=== PATIENT | female | born 2005 | race Caucasian/White ===

== ENCOUNTER 2025-03-04 22:57 | Emergency (ER) | payer MEDICAID, SELFPAY ==
--- OUTSIDE RECORDS SUMMARY | 2025-02-19 11:13 | XMS_ITS | Continuity of Care Document ---
Author Organization [facility] Address [address] [place] [address] Phone Care Team Providers Care Admittance Attendant Name Role Phone Luis Katt FERNANDEZ Unavailable Unavaila ble Allergies, Adverse Reactions, Alerts Substance Reaction Status Criticality No Known Allergies Active No Inform ation Medications Medication Instructions Dosage Effective Dates (start - stop) Status Comments Depo-Provera 150 mg/mL intramuscular syringe inject 1 milliliter by intramuscular route every 3 months 150 MG - Active Problems Condition Type Effective Dates (start - stop) Clini robert Status Comments No Known Problems Procedures Procedure Date Depo Provera 1 Ml OFFICE/OUTPATIENT VISIT, EST DIAST BP 80-89 MM HG SYST BP >=130-139MM HG MED LIST DOCD IN [facility] RVW MEDS BY RX/DR IN [facility] TOBACCO NON-USER Pt inelig neg scrn depres Depo Provera 1 Ml OFFICE/OUTPATIENT VISIT, EST Bp scrn perf rec interval DIAST BP < 80 MM HG SYST BP >=130-139MM HG MED LIST DOCD IN RD RVW MEDS BY RX/DR IN RD TOBACCO NON-USER Pt inelig neg scrn depres PREV VISIT, EST, AGE 18-39 Depo Provera 1 Ml OFFICE/OUTPATIENT VISIT, EST URINE TEST Depo Provera 1 Ml OFFICE/OUTPATIENT VISIT, EST Depo Provera 1 Ml OFFICE/OUTPATIENT VISIT, EST Depo Provera 1 Ml OFFICE/OUTPATIENT VISIT, EST OFFICE/OUTPATIENT VISIT, EST Depo Provera 1 Ml Depo Provera 1 Ml CAPILLARY BLOOD DRAW RAPID STI Chalm/Gonorr/Trich PREV VISIT, EST, AGE 18-39 GLYCOSYLATED HEMOGLOBIN TEST OFFICE/OUTPATIENT VISIT, EST Depo Provera 1 Ml Depo Provera 1 Ml OFFICE/OUTPATIENT VISIT, EST Donation Depo Provera 1 Ml OFFICE/OUTPATIENT VISIT, EST Donation Depo Provera 1 Ml OFFICE/OUTPATIENT VISIT, EST Depo Provera 1 Ml PREV VISIT, EST, AGE 18-39 THER/PROPH/DIAG INJ, SC/IM Depo Provera 1 Ml OFFICE/OUTPATIENT VISIT, EST OFFICE/OUTPATIENT VISIT, EST Depo Provera 1 Ml THER/PROPH/DIAG INJ, SC/IM Depo Provera 1 Ml OFFICE/OUTPATIENT VISIT, EST THER/PROPH/DIAG INJ, SC/IM Depo Provera 1 Ml OFFICE/OUTPATIENT VISIT, EST THER/PROPH/DIAG INJ, SC/IM OFFICE/OUTPATIENT VISIT, EST Depo Provera 1 Ml Depo Provera 1 Ml OFFICE/OUTPATIENT VISIT, EST THER/PROPH/DIAG INJ, SC/IM Depo Provera 1 Ml OFFICE/OUTPATIENT VISIT, EST THER/PROPH/DIAG INJ, SC/IM Depo Provera 1 Ml OFFICE/OUTPATIENT VISIT, EST THER/PROPH/DIAG INJ, SC/IM Imm Admin Through 18 Yrs Of Age - 021 Meningococcal Conjugate Vaccine 021 Depo Provera 1 Ml OFFICE/OUTPATIENT VISIT, EST THER/PROPH/DIAG INJ, SC/IM OFFICE/OUTPATIENT VISIT, EST PREV VISIT, EST, AGE 12-17 Depo Provera 1 Ml THER/PROPH/DIAG INJ, SC/IM Depo Provera 1 Ml OFFICE/OUTPATIENT VISIT, EST THER/PROPH/DIAG INJ, SC/IM Depo Provera 1 Ml OFFICE/OUTPATIENT VISIT, EST THER/PROPH/DIAG INJ, SC/IM Depo Provera 1 Ml THER/PROPH/DIAG INJ, SC/IM Depo Provera 1 Ml OFFICE/OUTPATIENT VISIT, EST THER/PROPH/DIAG INJ, SC/IM URINE TEST OFFICE/OUTPATIENT VISIT, EST Depo Provera 1 Ml THER/PROPH/DIAG INJ, SC/IM URINE TEST Imm Admin Through 18 Yrs Of Age 019 HPV 9 Valent PREV VISIT, EST, AGE 12-17 Imm Admin Through 18 Yrs Of Age 016 TDAP VACCINE >7 IM Imm Admin Through 18 Yrs Of Age 016 Meningococcal Conjugate Vaccine 016 Imm Admin Through 18 Yrs Of Age 016 HEP A VACC, PED/ADOL, 2 DOSE Imm Admin Through 18 Yrs Of Age 016 FLU VAC NO PRSV 4 ENA 3 YRS+ Imm Admin Through 18 Yrs Of Age 016 HPV 9 Valent ASSAY OF LEAD OFFICE/OUTPATIENT VISIT, EST HEP A VACC, PED/ADOL, 2 DOSE DTAP VACCINE, < 7 YRS, IM MMR VACCINE, SC POLIOVIRUS, IPV, SC/IM CHICKEN POX VACCINE, SC Advance Directives Directive Yes / No Effective Date File Name No Information Encounters Encounter Description Practice Location Reason(s) For Visit Diagnoses Date Provider Providers Copied on Encounter OFFICE/OUTPA TIENT VISIT, EST [facility], [address] [place] [address], [id number] , [place] tel:[phone] [facility] Contraception (chief complaint) Depo Provera injectionBody mass index [BMI]40.0-44.9, adult 5 Luis [facility]. [address] [place] [address], [id number] , [place]. tel:+ [phone] OFFICE/OUTPA TIENT VISIT, [facility], [address] [place] [address], [id number] , [place] tel: [phone] [facility] Depo (chief complaint) Depo Provera injectionBody mass index [BMI]40.0-44.9, adult 5 [facility] Katt. [address] [place] [address], [id number] , [place]. tel: [phone] PREV VISIT, EST, AGE 18-39 [facility], [address] [place] [address], [id number] , [place] tel: [phone] [facility] annual exam (chief complaint) Encounter for gynecological examination (general) (routine) without abnormal findingsBody mass index [BMI] 38.0-38.9, adultDepo Provera injection- STD High risk heterosexual behavior- STD screen 5 [facility]. [address] [place] [address], [id number] , [place]. tel: [phone] OFFICE/OUTPA TIENT VISIT, [facility], [address] [place] [address], [id number] , [place] tel: [phone] [facility] Vulvar lesion (chief complaint) Body mass index [BMI] 37.0-37.9, adultVulvar lesion 5 [facility] Katt. [address] [place] [address], [id number] , [place]. tel: [phone] OFFICE/OUTPA TIENT VISIT, EST [facility], [address] [place] [address], [id number] , [place] tel: [phone] [facility] contraception (chief complaint) Depo Provera injectionEncounte r for test, result negativeBody mass index [BMI] 37.0-37.9, adult 4 [facility]. [address] [place] [address], [id number] , [place]. tel: [phone] OFFICE/OUTPA TIENT VISIT, [facility], [address] [place] [address], [id number] , [place] tel: [phone] [facility] contraception (chief complaint) Depo Provera injectionBody mass index [BMI] 39.0-39.9, adult 4 [facility] Katt. [address], [place], [id number] , [place]. tel: [phone] OFFICE/OUTPA TIENT VISIT, EST [facility], [address], [place], [id number] , [place] tel: [phone] [facility] contraception (chief complaint) Body mass index [BMI]40.0-44.9, adultDepo Provera injection 4 [facility] Katt. [address], [place], [id number] , [place]. tel: [phone] OFFICE/OUTPA TIENT VISIT, [facility], [address] [place] [address], [id number] , [place] tel: [phone] [facility] contraception (chief complaint) Body mass index [BMI]40.0-44.9, adultEncounter for surveillance of injectable contraceptive 4 [facility] Katt. [address] [place] [address], [id number] , [place]. tel: [phone] PREV VISIT, EST, AGE 18-39 [facility], [address] [place] [address], [id number] , [place] tel: [phone] [facility] annual exam (chief complaint)cont raception (chief complaint) Encounter for gynecological examination (general) (routine) without abnormal findingsEncounter for STI screeningEncounte r for surveillance of injectable contraceptiveBody mass index [BMI]40.0-44.9, adult- STD High risk heterosexual behavior 4 [facility] Katt. [address] [place] [address], [id number] , [place]. tel: [phone] OFFICE/OUTPA TIENT VISIT, [facility], [address] [place] [address], [id number] , [place] tel:+ [phone] [facility] contraception (chief complaint) Encounter for surveillance of injectable contraceptive 3 [facility] Katt. [address], [place], [id number] , [place]. tel: [phone] OFFICE/OUTPA TIENT VISIT, [facility], [address], [place], [id number] , [place] tel: [phone] [facility] contraception (chief complaint) Encounter for surveillance of injectable contraceptive 3 [facility] Katt. [address], [place], [id number] , [place]. tel: [phone] OFFICE/OUTPA TIENT VISIT, [facility], [address], [place], [id number] , [place] tel: [phone] [facility] contraception (chief complaint) Encounter for surveillance of injectable contraceptive 3 [facility] Katt. [address], [place], [id number] , [place]. tel: [phone] OFFICE/OUTPA TIENT VISIT, [facility], [address], [place], [id number] , [place] tel: [phone] [facility] contraception (chief complaint) Encounter for surveillance of injectable contraceptive 3 [facility] Katt. [address], [place], [id number] , [place]. tel: [phone] PREV VISIT, EST, AGE 18-39 [facility], [address], [place], [id number] , [place] tel: [phone] [facility] annual exam (chief complaint) Encounter for gynecological examination (general) (routine) without abnormal findingsEncounter for surveillance of injectable contraceptive 3 [facility] Katt. [address], [place], [id number] , [place]. tel: [phone] OFFICE/OUTPA TIENT VISIT, [facility], [address], [place], [id number] , [place] tel: [phone] [facility] contraception (chief complaint) Encounter for surveillance of injectable contraceptive 2 [facility] Katt. [address], [place], [id number] , [place]. tel:+ [phone] OFFICE/OUTPA TIENT VISIT, [facility], [address], [place], [id number] , [place] tel:+ [phone] [facility] contraception (chief complaint) Body mass index [BMI] 36.0-36.9, adultEncounter for surveillance of injectable contraceptive 2 [facility] Katt. [address], [place], [id number] , [place]. tel: [phone] OFFICE/OUTPA TIENT VISIT, [facility], [address] [place] [address], [id number] , [place] tel: [phone] [facility] contraception (chief complaint) Encounter for surveillance of injectable contraceptiveBody mass index [BMI] 34.0-34.9, adult Dec- 2 [facility] Katt. [address], [place], [id number] , [place]. tel: [phone] OFFICE/OUTPA TIENT VISIT, [facility], [address], [place], [id number] , [place] tel: [phone] [facility] contraception (chief complaint) Encounter for surveillance of injectable contraceptiveBody mass index [BMI] 32.0-32.9, adult Sep- 2 [facility] Katt. [address] [place] [address], [id number] , [place]. tel:+ [phone] OFFICE/OUTPA TIENT VISIT, [facility], [address] [place] [address], [id number] , [place] tel: [phone] [facility] annual exam (chief complaint) - Well woman normal findingsEncounter for surveillance of injectable contraceptiveBody mass index [BMI] 32.0-32.9, adult 2 [facility] Katt. [address], [place], [id number] , [place]. tel:+ [phone] OFFICE/OUTPA TIENT VISIT, [facility], [address], [place], [id number] , [place] tel: [phone] [facility] contraception (chief complaint) Encounter for surveillance of injectable contraceptiveBody mass index [BMI] 31.0-31.9, adult 1 [facility] Katt. [address], [place], [id number] , [place]. tel:+ [phone] OFFICE/OUTPA TIENT VISIT, [facility], [address], [place], [id number] , [place] tel:+ [phone] [facility] contraception (chief complaint) Body mass index [BMI] 33.0-33.9, adultEncounter for surveillance of injectable contraceptive 1 [facility] Katt. [address], [place], [id number] , [place]. tel:+ [phone] OFFICE/OUTPA TIENT VISIT, [facility], [address], [place], [id number] , [place] tel:+ [phone] [facility] contraception (chief complaint) Encounter for surveillance of injectable contraceptiveBody mass index [BMI] 32.0-32.9, adult 1 [facility] Katt. [address], [place], [id number] , [place]. tel:+ [phone] [facility], [address], [place], [id number] , [place] tel:+ [phone] [facility] No Information 1 Natalie Loera. [address], [place], [id number] , [place]. tel:+ [phone] OFFICE/OUTPA TIENT VISIT, [facility], [address], [place], [id number] , [place] tel: [phone] [facility] contraception (chief complaint) Encounter for surveillance of injectable contraceptiveBody mass index [BMI] 32.0-32.9, adult Sep- 0- 1 Luis [facility]. [address], [place], [id number] , [place]. tel: [phone] OFFICE/OUTPA TIENT VISIT, [facility], [address], [place], [id number] , [place] tel: [phone] [facility] Irregular menses (chief complaint) Body mass index [BMI] 32.0-32.9, adultIrregular periods 1 [facility] Katt. [address] [place] [address], [id number] , [place]. tel: [phone] PREV VISIT, [facility], AGE 12-17 [facility], [address] [place] [address], [id number] , [place] tel: [phone] [facility] annual exam (chief complaint) Encounter for surveillance of injectable contraceptive- Well woman normal findingsBody mass index [BMI] 31.0-31.9, adult Jun-08 26- 0 [facility] Katt. [address] [place] [address], [id number] , [place]. tel: [phone] OFFICE/OUTPA TIENT VISIT, [facility], [address], [place], [id number] , [place] tel: [phone] [facility] contraception (chief complaint) Encounter for surveillance of injectable contraceptiveBody mass index [BMI] 32.0-32.9, adult Apr-07 28- 0 [facility] Katt. [address], [place], [id number] , [place]. tel: [phone] OFFICE/OUTPA TIENT VISIT, [facility], [address] [place] [address], [id number] , [place] tel: [phone] [facility] contraception (chief complaint) Body mass index (BMI) 32.0-32.9, adultEncounter for surveillance of injectable contraceptive 0 [facility] Katt. [address], [place], [id number] , [place]. tel:+ [phone] [facility], [address] [place] [address], [id number] , [place] tel: [phone] [facility] BMI pediatric, greater than or equal to 95% for ageInitiation of Depo Provera 0 [facility] Katt. [address], [place], [id number] , [place]. tel: [phone] OFFICE/OUTPA TIENT VISIT, EST [facility], [address] [place] [address], [id number] , [place] tel: [phone] [facility] contraception (chief complaint) Encounter for surveillance of injectable contraceptiveBody mass index (BMI) 30.0-30.9, adult 0 [facility] Katt. [address] [place] [address], [id number] , [place]. tel: [phone] OFFICE/OUTPA TIENT VISIT, EST [facility], [address] [place] [address], [id number] , [place] tel: [phone] [facility] contraception (chief complaint) Body mass index (BMI) 30.0-30.9, adultNegative testInitiation of Depo Provera 9 [facility] Katt. [address], [place], [id number] , [place]. tel: [phone] PREV VISIT, EST, AGE 12-17 [facility], [address] [place] [address], [id number] , [place] tel:+ [phone] [facility] annual exam (chief complaint) Negative testBody mass index (BMI) 29.0-29.9, adult- Well woman normal findings- STD education 9 [facility] Katt. [address] [place] [address], [id number] , [place]. tel: [phone] [facility], [address] [place] [address], [id number] , [place] tel: [phone] [facility] No Information 3-201 6 Natalie Loera. [address], [place], [id number] , [place]. tel: [phone] [facility], [address] [place] [address], [id number] , [place] tel: [phone] [facility] No Information 9-201 0 Natalie Loera. [address] [place] [address], [id number] , [place]. tel: [phone] OFFICE/OUTPA TIENT VISIT, EST [facility], [address] [place] [address], [id number] , [place] tel: [phone] [facility] No Information 2-200 9 Natalie Loera. [address] [place] [address], [id number] , [place]. tel: [phone] Family History Family Member Type Diagnosis Age At Onset Father Problem (finding) Alive and well Mother Problem Migraine headaches Mother Problem (finding) Alive and well Brother Problem attention defici t hyperactivity disorder Sister Problem (finding) depression Mother Problem Depression Brother Problem Eczema Mother Problem (finding) attention defi cit hyperactivity disorder Father Problem Diabetes mellitus Maternal grandmother Problem Diabetes mellitus Brother Problem Asthma Sister Problem (finding) Alive and well Immunizations Vaccine Date Status Comments MCV4 administered Source: New Imm unization Record HPV (9-valent) administered Source: New I mmunization Record Influenza virus vaccine, injectable, quadrivalent, split virus, preservative free, 3 years or older Fluarix, Flulaval or Fluzone Quad [id number] administered Source: New Immuniza tion Record HPV (9-valent) administered Source: New I mmunization Record Tdap administered Source: New Imm unization Record MCV4 administered Source: New Imm unization Record Hep A (ped/adol, 2 dose) administered Niecy rce: New Immunization Record Payers Payer name Insurance type Covered republican ID Mariely jama(s) Medicaid Primary - [facility] [id number] [facility] [id number] Medicaid Wrap - [facility] [id number] [facility] [id number] Medicaid Wrap - [facility] [id number] Social History Type Description Quantity Date Captured Comments Alcohol Use Details No Caffeine Use Details energy drinks and coffee 16 oz per day Tobacco Use Status Current non-smoker Smoking Status Never smoker Non-Smoking Tobacco Use Details : No Details Available : No Details Available Sex Female Sexual Orientation Bisexual Gender Identity Female Vital Signs Date / Time: Height Weight BMI Pulse Rate Blood Pressure Temperature Respiratory Rate Body Surface Area Head Circumference Head Circ. Percentile Wt./Frantz. Percentile BMI percentile Pulse Ox Inhaled Ox 3:24 PM 72.00 in 138.618 kg (305.60 lbs) 41.4 5 kg/m eter (2) 94 /min 132/82 mm[Hg] Chief Complaint And Reason For Visit From encounter dated '02/19/2025 15:13'. Contraception (chief complaint) Reason For Referral Reason For Referral No Information Plan Of Treatment Date Type Action Status Goal RLP. Due on due Goal Hepatitis C screening. Due o n due Goal Influenza vaccine. Due on due Goal Depression screening. Due on due Goal Tdap Vaccine. Due on 2025 due Goal Tdap due Goal PRAPARE ASSESSMENT. Due on due Goal PAP. Due on due Goal Unhealthy drug use screening . Due on due Goal Dietary manageme nt education, guidance, and counseling completed Goal Tdap due Goal PRAPARE ASSESSMENT. Due on M due Goal Influenza vaccine. Due on Tavo due Goal Hepatitis C screening. Due o n due Goal Unhealthy drug use screening . Due on due Goal Tdap Vaccine. Due on 2025 due Goal RLP. Due on due Goal Depression screening. Due on due Goal Dietary manageme nt education, guidance, and counseling completed Goal Depression screening. Due on due Goal Unhealthy drug use screening . Due on due Goal Hepatitis C screening. Due o n due Goal PRAPARE ASSESSMENT. Due on M due Goal RLP. Due on due Goal Tdap due Goal Influenza vaccine. Due on [place] due Goal Tdap Vaccine. Due on 2025 due Goal Influenza vaccine. Due on due Goal RLP. Due on due Goal Depression screening. Due on due Goal Unhealthy drug use screening . Due on due Goal Tdap due Goal Hepatitis C screening. Due o n due Goal PRAPARE ASSESSMENT. Due on due Goal Tdap Vaccine. Due on 2025 due Goal RLP. Due on due Goal Tdap due Goal Depression screening. Due on due Goal Influenza vaccine. Due on due Goal Hepatitis C screening. Due o n due Goal Unhealthy drug use screening . Due on due Goal Tdap Vaccine. Due on 2025 due Goal PRAPARE ASSESSMENT. Due on D due Goal Dietary manageme nt education, guidance, and counseling completed Goal Depression screening. Due on due Goal PRAPARE ASSESSMENT. Due on O due Goal Tdap Vaccine. Due on 2025 due Goal Hepatitis C screening. Due o n due Goal Unhealthy drug use screening . Due on due Goal RLP. Due on due Goal Tdap due Goal Influenza vaccine. Due on Oc due Goal Dietary manageme nt education, guidance, and counseling completed Goal Tdap due Goal PRAPARE ASSESSMENT. Due on due Goal Hepatitis C screening. Due o n due Goal Influenza vaccine. Due on due Goal RLP. Due on due Goal Depression screening. Due on due Goal Unhealthy drug use screening . Due on due Goal Tdap Vaccine. Due on 2025 due Goal Dietary manageme nt education, guidance, and counseling completed Goal PRAPARE ASSESSMENT. Due on due Goal RLP. Due on due Goal Unhealthy drug use screening . Due on due Goal Tdap Vaccine. Due on 2025 due Goal Depression screening. Due on due Goal Influenza vaccine. Due on due Goal Hepatitis C screening. Due o n due Goal Tdap due Goal Dietary manageme nt education, guidance, and counseling completed Goal Depression screening. Due on due Goal Hepatitis C screening. Due o n due Goal Tdap Vaccine. Due on 2025 due Goal Influenza vaccine. Due on due Goal Unhealthy drug use screening . Due on due Goal PRAPARE ASSESSMENT. Due on due Goal RLP. Due on due Goal Tdap due Goal Dietary manageme nt education, guidance, and counseling completed Goal Unhealthy drug use screening . Due on due Goal RLP. Due on due Goal PRAPARE ASSESSMENT. Due on due Goal Influenza vaccine. Due on due Goal Tdap due Goal Depression screening. Due on due Goal Hepatitis C screening. Due o n due Goal Tdap Vaccine. Due on 2025 due Goal Tdap Vaccine. Due on 2025 due Goal Depression screening. Due on due Goal RLP. Due on due Goal Influenza vaccine. Due on Se due Goal Tdap due Goal PRAPARE ASSESSMENT. Due on S due Goal Depression screening. Due on due Goal RLP. Due on due Goal Influenza vaccine. Due on due Goal Tdap Vaccine. Due on 2025 due Goal PRAPARE ASSESSMENT. Due on due Goal Tdap due Goal Depression screening. Due on due Goal Tdap due Goal PRAPARE ASSESSMENT. Due on A due Goal Influenza vaccine. Due on Ap due Goal Tdap Vaccine. Due on 2025 due Goal RLP. Due on due Goal Depression screening. Due on due Goal Tdap due Goal PRAPARE ASSESSMENT. Due on due Goal RLP. Due on due Goal Influenza vaccine. Due on due Goal Tdap Vaccine. Due on 2025 due Goal Depression screening. Due on due Goal Tdap due Goal PRAPARE ASSESSMENT. Due on N due Goal RLP. Due on due Goal Influenza vaccine. Due on No v due Goal Influenza vaccine. Due on Au due Goal RLP. Due on due Goal PRAPARE ASSESSMENT. Due on A due Goal Tdap due Goal Depression screening. Due on due Goal Dietary manageme nt education, guidance, and counseling completed Goal Dietary manageme nt education, guidance, and counseling completed Goal Dietary manageme nt education, guidance, and counseling completed Goal Dietary manageme nt education, guidance, and counseling completed Goal Dietary manageme nt education, guidance, and counseling completed Goal Dietary manageme nt education, guidance, and counseling completed Goal Dietary manageme nt education, guidance, and counseling completed Goal Dietary manageme nt education, guidance, and counseling completed Goal Dietary manageme nt education, guidance, and counseling completed Goal Dietary manageme nt education, guidance, and counseling completed Goal Dietary manageme nt education, guidance, and counseling completed Goal Dietary manageme nt education, guidance, and counseling completed Goal Dietary manageme nt education, guidance, and counseling completed Goal Dietary manageme nt education, guidance, and counseling completed Goal Dietary manageme nt education, guidance, and counseling completed Goal Dietary manageme nt education, guidance, and counseling completed Appointment Suha Tirado BOOKED Appointment Suha Tirado BOOKED History Of Present Illness Encounter Date Complaint History Of Prese nt Illness Comments: Denice grimes is here for Depo Provera. Doing well and desires to continue at this time. Does not desire a in the near future. Due to weight gain would like to change to IUD in the future. Desires appt with Dr. Estrada Contraception Depo Patient is here for Depo Provera. Doing well and desires to continue at this time. Does not desire a in the near future. May consider changing to a different form of BCM in the future, but today plans to continue with Depo Provera. Is not happy about weight gain annual exam Currently pregna nt: no. The client states using Depo-Provera and abstinence for control. The client does not drink alcohol. Vulvar lesion Patient has a te ar at the introitus that is slightly painful. It did cause bleeding with IC on Wednesday. Denies other RN CARDIAC REHAB problems at tis time. contraception Discussed contra ception with client. The client is currently using Depo-Provera and abstinence. The client desires to remain on current control method. The client is not currently . The client does not desire to be in the next year. Client denies dysmenorrhea and menorrhagia. Menarche age (Menarche age was 10), Menses (Menses is absent.). Additional information: Doing well with Depo Provera. Denies problems and desire to continue. Requesting test. contraception Discussed contra ception with client. The client is currently using Depo-Provera and abstinence. The client desires to remain on current control method. The client is not currently . The client does not desire to be in the next year. Menarche age (Menarche age was 10), Menses (Menses is absent.). Additional information: Patient is here for Depo Provera. Doing well and desires to continue at this time. contraception Discussed contra ception with client. The client is currently using Depo-Provera and abstinence. The client is not currently . Menarche age (Menarche age was 10). Additional information: Patient is currently using Depo Provera for BCM and desires to continue at this time. She does not desire a at this time. contraception Discussed contra ception with client. The client is currently using Depo-Provera and abstinence. The client desires to remain on current control method. The client is not currently . The client does not desire to be in the next year. Client denies dysmenorrhea and menorrhagia. Menarche age (Menarche age was 10), Menses (Menses is absent.). Additional information: Patient is here for Depo Provera. Doing well and desires to continue at this time. Does not desire a in the near future. contraception Discussed contra ception with client. The client is currently using Depo-Provera and abstinence. The client desires to remain on current control method. The client is not currently . The client does not desire to be in the next year. Client denies dysmenorrhea and menorrhagia. Menarche age (Menarche age was 10), Menses (Menses is absent.). annual exam Currently pregna nt: no.Client is not contemplating . The client states using Depo-Provera? and abstinence for control. Patient's menses is absent. Negative for dysmenorrhea and menorrhagia. Negative for: breast discharge, breast lump(s), breast pain and breast self exam.Negative for Hormone replacement therapy. The client does not use tobacco. The client does not drink alcohol. Additional information: Patient is here for annual exam. She is sexually active and has had 3 lifetime partners. She is currently on Depo Provera and desires to continue. Denies other RN CARDIAC REHAB problems at this time. . contraception Discussed contra ception with client. The client is currently using Depo-Provera and abstinence. The client desires to remain on current control method. The client is not currently . The client does not desire to be in the next year. Client denies dysmenorrhea and menorrhagia. Menarche age (Menarche age was 10), Menses (Menses is absent.). Additional information: Patient is here for Depo Provera. Doing well and desires to continue. Does not desire a in a near future. contraception Patient does not desire in the near future. Doing well with Depo Provera and desires to continue. contraception Patient does not desire in the near future. Doing well with Depo Provera and desires to continue. contraception Patient does not desire in the near future. Doing well with Depo Provera and desires to continue. annual exam Currently pregna nt: no. Patient is not contemplating . The patient states she uses Depo-Provera and abstinence for control. Her menses is absent. Negative for dysmenorrhea and menorrhagia. Negative for: breast discharge, breast lump(s), breast pain and breast self exam. The patient does not use tobacco. She does not drink alcohol. Additional information: Patient is here for annual exam. Currently on Depo [place] and doing well . Desires to continue at this time. States she has never been sexually active and does not plan to be in the near future. Denies any RN CARDIAC REHAB problems at this time.. contraception Patient does not desire in the near future. Doing well with Depo Provera and desires to continue. contraception Patient does not desire in the near future. Doing well with Depo Provera and desires to continue. contraception Patient does not desire in the near future. Doing well with Depo Provera and desires to continue. contraception Patient does not desire in the near future. Doing well with Depo Provera and desires to continue. annual exam Currently pregna nt: no. Patient is not contemplating . The patient states she uses Depo-Provera and abstinence for control. Her menses is with spotting flow with a frequency of rarely. Negative for dysmenorrhea and menorrhagia. Negative for: breast discharge, breast lump(s), breast pain and breast self exam.The patient is not post-menopausal. Negative for Hormone replacement therapy. The patient does not use tobacco. She does not drink alcohol. Additional information: Patient is here for annual exam. States she has never been sexually active, but is talking " with a boy and it may turn into a relationship. Currently on Depo Provera and desires to continue at this time. Denies RN CARDIAC REHAB problems. contraception Patient does not desire in the near future. Doing well with Depo Provera and desires to continue. contraception Patient does not desire in the near future. Doing well with Depo Provera and desires to continue. contraception Patient does not desire in the near future. Doing well with Depo Provera and desires to continue. contraception Patient does not desire in the near future. Doing well with Depo Provera and desires to continue. Irregular menses The age of benjamin rche onset was 10. Patient not .Additional information: Patient is currently on Depo Provera and over the last week she had a full blow menses and desires to try and make it go away. At times she has BTB right before she is due for her injection, but this is med cycle. annual exam Currently pregna nt: no. Patient is not contemplating . The patient states she uses Depo-Provera for control. Her menses is absent. Negative for dysmenorrhea and menorrhagia. Negative for: breast discharge, breast lump(s), breast pain and breast self exam.Negative for Hormone replacement therapy. She does not drink alcohol. Additional information: Patient is here for annual exam and Depo Provera. Doing well with Depo and desires to continue. Denies other RN CARDIAC REHAB problems at this time.. contraception Patient does not desire in the near future. Doing well with Depo Provera and desires to continue. contraception Patient does not desire in the near future. Doing well with Depo Provera and desires to continue. contraception Patient does not desire in the near future. Doing well with Depo Provera and desires to continue. contraception Patient is in a relationship for 1 month and desires to start Depo Provera for BC. Has not been sexually active and she and her partner have not discussed sex, but want BC just in case. Denies other RN CARDIAC REHAB problems at this time. annual exam Currently pregna nt: no. Patient is not contemplating . The patient states she uses none for control. Last LMP was 12/23/2018. Her menses is regular with heavy flow with a frequency of every 28 days. Positive for dysmenorrhea. Negative for menorrhagia. Negative for: breast discharge, breast lump(s), breast pain and breast self exam.Negative for Hormone replacement therapy. The patient does not use tobacco. She does not drink alcohol. Additional information: Patient present today with her step mother. and her Mother is present in the Lobby. Patient is not sexually active and does not plan to become sexually active in the near future. Step mother states she and patient's father would like her to start BC to prevent in the future and to help regulate menses. Patient does not want to start BC of any sort at this time. Step mother was ask to leave exam room, so I can have a private conversation with the patient.. Functional Status Date Functional Assessmen t No Information Instructions Date Instruction Additional Infor mery May continue Depo Pr overa. Encouraged calcium 1000mg QD. Recommend condoms for back up BC and to prevent STDs Appt made for IUD insertion Apr 2025 Related to Depo Provera injection Giving encouragement to exercise Related to Body mass index [BMI] 40.0-44.9, adult Dietary management e ducation, guidance, and counseling Related to Body mass index [BMI] 40.0-44.9, adult May continue Depo Pr overa. Encouraged calcium 1000mg QD. Recommend condoms for back up BC and to prevent STDsDiscussed BCM options and handout was given. Patient to consider and contact office if desires to change Related to Depo Provera injection Giving encouragement to exercise Related to Body mass index [BMI] 40.0-44.9, adult Dietary management e ducation, guidance, and counseling Related to Body mass index [BMI] 40.0-44.9, adult Encouraged good diet charbel intake, exercise and healthy lifestyle choices. Recommend daily multi-vitamin with Folic acid. Understands the need for non-violent partners in a consensual relationship. Patient does not desire a in the near future. Reviewed control options for prevention and desires to continue using Depo ProveraDeclines HIV, RPR and Hep C Related to Encounter for gynecological examination (general) (routine) without abnormal findings May continue Depo Pr overa. Encouraged calcium 1000mg QD. Recommend condoms for back up BC and to prevent STDs Related to Depo Provera injection Rapid STD screen obt ained in office today. If result is negative patient will not receive a call. If positive, [facility] will call patient within 24 hours. Patient states understanding. Encouraged to use condoms in the future to prevent STDs Related to - STD screen Giving encouragement to exercise Related to Body mass index [BMI] 38.0-38.9, adult Dietary needs education Related to Body mass index [BMI] 38.0-38.9, adult Discussed tear/lesio n in detail and encouraged patient to avoid IC at this time. HCV sent to lab. patient to call in 1 week for result. Rx fir Nystatin cream and triamcinolone were sent to her pharmacy. Mix the two together and apply BID for 10 days. Related to Vulvar lesion Giving encouragement to exercise Related to Body mass index [BMI] 37.0-37.9, adult Dietary needs education Related to Body mass index [BMI] 37.0-37.9, adult May continue Depo Pr overa. Encouraged calcium 1000mg QD. Recommend condoms for back up BC and to prevent STDs Related to Depo Provera injection Giving encouragement to exercise Related to Body mass index [BMI] 37.0-37.9, adult Dietary management e ducation, guidance, and counseling Related to Body mass index [BMI] 37.0-37.9, adult May continue Depo Pr overa. Encouraged calcium 1000mg QD. Recommend condoms for back up BC and to prevent STDs Related to Depo Provera injection Giving encouragement to exercise Related to Body mass index [BMI] 39.0-39.9, adult Dietary management e ducation, guidance, and counseling Related to Body mass index [BMI] 39.0-39.9, adult May continue Depo Pr overa. Encouraged calcium 1000mg QD. Recommend condoms for back up BC and to prevent STDs Related to Depo Provera injection Giving encouragement to exercise Related to Body mass index [BMI] 40.0-44.9, adult Dietary management e ducation, guidance, and counseling Related to Body mass index [BMI] 40.0-44.9, adult May continue Depo Pr overa. Encouraged calcium 1000mg QD. Recommend condoms for back up BC and to prevent STDs Related to Encounter for surveillance of injectable contraceptive Giving encouragement to exercise Related to Body mass index [BMI] 40.0-44.9, adult Dietary management e ducation, guidance, and counseling Related to Body mass index [BMI] 40.0-44.9, adult Encouraged good diet charbel intake, exercise and healthy lifestyle choices. Recommend daily multi-vitamin with Folic acid. Understands the need for non-violent partners in a consensual relationship. Patient does not desire a in the near future. Reviewed control options for prevention and desires to continue using Depo Provera..Patient declines HIV, RPR and HEp CShe desires to complete Hgb A1c in office today. Related to Encounter for gynecological examination (general) (routine) without abnormal findings Rapid STD screen obt ained in office today. If result is negative patient will not receive a call. If positive, [facility] will call patient within 24 hours. Patient states understanding. Encouraged to use condoms in the future to prevent STDs Related to Encounter for STI screening May continue Depo Pr overa. Encouraged calcium 1000mg QD. Recommend condoms for back up BC and to prevent STDs Related to Encounter for surveillance of injectable contraceptive Giving encouragement to exercise Related to Body mass index [BMI] 40.0-44.9, adult Dietary management e ducation, guidance, and counseling Related to Body mass index [BMI] 40.0-44.9, adult May continue Depo Pr overa. Encouraged calcium 1000mg QD. Recommend condoms for back up BC and to prevent STDs Related to Encounter for surveillance of injectable contraceptive May continue Depo Pr overa. Encouraged calcium 1000mg QD. Recommend condoms for back up BC and to prevent STDs Related to Encounter for surveillance of injectable contraceptive May continue Depo Pr overa. Encouraged calcium 1000mg QD. Recommend condoms for back up BC and to prevent STDs Related to Encounter for surveillance of injectable contraceptive May continue Depo Pr overa. Encouraged calcium 1000mg QD. Recommend condoms for back up BC and to prevent STDs Related to Encounter for surveillance of injectable contraceptive Encouraged monthly B SE. Recommend calcium 1000mg QD. Encouraged good dietary intake and exercise. Discussed control options and patient desires to continue Depo Provera at this time. Encouraged to use condoms if becomes sexually active in the future Related to Encounter for gynecological examination (general) (routine) without abnormal findings May continue Depo Pr overa. Encouraged calcium 1000mg QD. Recommend condoms for back up BC and to prevent STDs Related to Encounter for surveillance of injectable contraceptive May continue Depo Pr overa. Encouraged calcium 1000mg QD. Recommend condoms for back up BC and to prevent STDs Related to Encounter for surveillance of injectable contraceptive May continue Depo Pr overa. Encouraged calcium 1000mg QD. Recommend condoms for back up BC and to prevent STDs Related to Encounter for surveillance of injectable contraceptive Giving encouragement to exercise Related to Body mass index [BMI] 36.0-36.9, adult Dietary management e ducation, guidance, and counseling Related to Body mass index [BMI] 36.0-36.9, adult May continue Depo Pr overa. Encouraged calcium 1000mg QD. Recommend condoms for back up BC and to prevent STDs Related to Encounter for surveillance of injectable contraceptive Dietary management e ducation, guidance, and counseling Related to Body mass index [BMI] 34.0-34.9, adult Giving encouragement to exercise Related to Body mass index [BMI] 34.0-34.9, adult May continue Depo Pr overa. Encouraged calcium 1000mg QD. Recommend condoms for back up BC and to prevent STDs Related to Encounter for surveillance of injectable contraceptive Giving encouragement to exercise Related to Body mass index [BMI] 32.0-32.9, adult Dietary management e ducation, guidance, and counseling Related to Body mass index [BMI] 32.0-32.9, adult May continue Depo Pr overa. Encouraged calcium 1000mg QD. Recommend condoms for back up BC and to prevent STDs Related to Encounter for surveillance of injectable contraceptive Encouraged monthly B SE. Recommend calcium 1000mg QD. Encouraged good dietary intake and exercise. Encouraged continued abstinence. If becomes sexually active in the near future encouraged to use condoms to prevent STds. Related to - Well woman normal findings Giving encouragement to exercise Related to Body mass index [BMI] 32.0-32.9, adult Dietary management e ducation, guidance, and counseling Related to Body mass index [BMI] 32.0-32.9, adult May continue Depo Pr overa. Encouraged calcium 1000mg QD. Recommend condoms for back up BC and to prevent STDs Related to Encounter for surveillance of injectable contraceptive Dietary management e ducation, guidance, and counseling Related to Body mass index [BMI] 31.0-31.9, adult Giving encouragement to exercise Related to Body mass index [BMI] 31.0-31.9, adult May continue Depo Pr overa. Encouraged calcium 1000mg QD. Recommend condoms for back up BC and to prevent STDs Related to Encounter for surveillance of injectable contraceptive Giving encouragement to exercise Related to Body mass index [BMI] 33.0-33.9, adult Dietary management e ducation, guidance, and counseling Related to Body mass index [BMI] 33.0-33.9, adult May continue Depo Pr overa. Encouraged calcium 1000mg QD. Recommend condoms for back up BC and to prevent STDs Related to Encounter for surveillance of injectable contraceptive Dietary management e ducation, guidance, and counseling Related to Body mass index [BMI] 32.0-32.9, adult Giving encouragement to exercise Related to Body mass index [BMI] 32.0-32.9, adult May continue Depo Pr overa. Encouraged calcium 1000mg QD. Recommend condoms for back up BC and to prevent STDs Related to Encounter for surveillance of injectable contraceptive Giving encouragement to exercise Related to Body mass index [BMI] 32.0-32.9, adult Dietary management e ducation, guidance, and counseling Related to Body mass index [BMI] 32.0-32.9, adult Discussed BTB associ ated with Depo Provera .Reassurance given. Rx for estrace 2mg 1 PO daily at HS #30 1 refill. Encouraged to keep next Depo Provera appt. Related to Irregular periods Dietary management e ducation, guidance, and counseling Related to Body mass index [BMI] 32.0-32.9, adult Giving encouragement to exercise Related to Body mass index [BMI] 32.0-32.9, adult May continue Depo Pr overa. Encouraged calcium 1000mg QD. Recommend condoms for back up BC and to prevent STDs if becomes sexually active Related to Encounter for surveillance of injectable contraceptive Encouraged monthly B SE. Recommend calcium 1000mg QD. Encouraged good dietary intake and exercise. Discussed control options and patient desires Abstinence. states she has never been sexually active Related to - Well woman normal findings Giving encouragement to exercise Related to Body mass index [BMI] 31.0-31.9, adult Dietary management e ducation, guidance, and counseling Related to Body mass index [BMI] 31.0-31.9, adult May continue Depo Pr overa. Encouraged calcium 1000mg QD. Recommend condoms for back up BC and to prevent STDs Related to Encounter for surveillance of injectable contraceptive Giving encouragement to exercise Related to Body mass index [BMI] 32.0-32.9, adult Dietary management e ducation, guidance, and counseling Related to Body mass index [BMI] 32.0-32.9, adult May continue Depo Pr overa. Encouraged calcium 1000mg QD. Recommend condoms for back up BC and to prevent STDs Related to Encounter for surveillance of injectable contraceptive Giving encouragement to exercise Related to Body mass index (BMI) 32.0-32.9, adult Dietary management e ducation, guidance, and counseling Related to Body mass index (BMI) 32.0-32.9, adult Dietary management e ducation, guidance, and counseling Related to Body mass index (BMI) pediatric, greater than or equal to 95th percentile for age Giving encouragement to exercise Related to Body mass index (BMI) pediatric, greater than or equal to 95th percentile for age May continue Depo Pr overa. Encouraged calcium 1000mg QD. Recommend condoms for back up BC and to prevent STDs Related to Encounter for surveillance of injectable contraceptive Giving encouragement to exercise Related to Body mass index (BMI) 30.0-30.9, adult Dietary management e ducation, guidance, and counseling Related to Body mass index (BMI) 30.0-30.9, adult Discussed BC options and patient desires to start Depo Provera today. Has never been sexually active. Condoms given for back up BC. Encouraged continued abstinence Related to Initiation of Depo Provera Exercises education, guidance, and counseling Related to Body mass index (BMI) 30.0-30.9, adult Dietary management e ducation, guidance, and counseling Related to Body mass index (BMI) 30.0-30.9, adult Discussed STDs in de tail and importance of using condoms in the future to prevent TSD. Condoms given to patient today. Discussed safe sex practices with both men and women. Patient states understanding Related to - STD education Encouraged monthly B SE. Recommend calcium 1000mg QD. Encouraged good dietary intake and exercise. Detail conversation with patient. States she is bisexual and does not plan to have sex with either men or women in the near future. She declines all forms of BC. Encouraged to take Motrin 800mg PRN cramping/heavy menses. Informed patient I could not make her do anything she did want to do. Encouraged continued abstinence and informed patient about confidential services in the future. After appt, patient gave me permission to have a conversation with patient and step mom. Informed her of patient's choice to not be sexually active and to not start on BC Related to - Well woman normal findings Exercises education, guidance, and counseling Related to Body mass index (BMI) 29.0-29.9, adult Dietary management e ducation, guidance, and counseling Related to Body mass index (BMI) 29.0-29.9, adult Assessments Type Assessment Date assessment Depo Provera injection 25 assessment Body mass index [BMI] 40.0-44.9, adult Mental Status Date Cognitive Assessment Orientation - [place] ed to time, place, person, situation. Patient Care Teams Name Effective Dates (start - stop) Status Members No Information
--- OUTSIDE RECORDS SUMMARY | 2025-03-04 23:08 | XMS_ITS | Encounter Summary ---
Author Organization [facility] Address [address] [facility] [place] [address] Care Team Providers Care Poke In Name Role Phone Ronal Vann DO Primary Care Provider [phone] Encounter Details Date Type Department Care Team (Late st Contact Info) Description 04/[facility]/2024 [facility] [address] [facility] [address] [place] [id number] Ronal Vann DO [address] [facility] [address] [place] [address] Social History Tobacco Use Types Packs/Day Years Used Date Smoking Tobacco: Never Passive Smoke Exposure: Never Smokeless Tobacco: Never Alcohol Use Standard Drinks/Week Comments Never 0 (1 standard drink = 0.6 oz pur e alcohol) PHQ-2 Answer Date Recorded Patient Health Questionnaire-2 Score 0 11/23/2023 Comments Unknown Sex and Gender Information Value Date Recorded Sex Assigned at Not on file Legal Sex Female 6:51 PM EDT Gender Identity Not on file Sexual Orientation Not on file documented as of this encounter Plan of Treatment Not on file documented as of this encounter Visit Diagnoses Not on filedocumented in this encounter Additional Health Concerns Assessment Noted Time PHQ-9 Depression Total Score: 12 023 1:42 PM EDT documented as of this encounter Care Teams Poke In Relationship Specialty Start Date End Date Ronal Vann DO [address] [facility] [address] [place] [address] PCP - General Family Medicine 12/28/22 09/03/24 documented as of this encounter
--- OUTSIDE RECORDS SUMMARY | 2025-03-04 23:08 | XMS_ITS | Encounter Summary ---
Author Organization [facility] Address [address] [place] [address] Care Team Providers Care Injection Specialist Name Role Phone Ronal Vann DO Primary Care Provider Reason for Visit * Reason Onset Date Comments Med Refill 09/01/2024 Encounter Details Date Type Department Care Team (Late st Contact Info) Description 09/01/2024 Refill [facility] [address] [facility] [address] [place] [id number] Ronal Vann DO [address] [facility] [address] [place] [address] Attention deficit hyperactivity disorder (ADHD), unspecified ADHD type Social History Tobacco Use Types Packs/Day Years [...] on file documented as of this encounter Miscellaneous Notes * Telephone Encounter - Ronal Vann DO - 09/01/2024 3:14 PM EST Too soon, needs ov * Telephone Encounter - Melissa Jack MA - 09/01/2024 9:51 AM EST Lm on vm to contact the office to get scheduled documented in this encounter Plan of Treatment Not on file documented as of this encounter Visit Diagnoses Diagnosis Attention deficit hyperactivity disorder (ADHD), unspecified ADHD type documented in this encounter Additional Health Concerns Assessment Noted Time PHQ-9 Depression Total Score: 12 023 1:42 PM EDT documented as of this encounter Care Teams Injection Specialist Relationship Specialty Start Date End Date Ronal Vann DO [address] [facility] [address] [place] [address] PCP - General Family Medicine 12/28/22 09/03/24 documented as of this encounter
--- OUTSIDE RECORDS SUMMARY | 2025-03-04 23:08 | XMS_ITS | Clinical Summary ---
Author Organization [facility] Address [address] [place] [address] Care Team Providers Care Medical Office Receptionist Assistant Name Role Phone Unavailable Primary Care Provider Unavailabl e Allergies Active Allergy Reactions Criticality Noted Date Comments Shellfish-Derived Products Anaphylaxis High 11/23/2023 Hives, throat closing up Medications ibuprofen 600 MG tablet Take 600 mg by mouth every 8 (eight) hours if needed for moderate pain. 2 Active EPINEPHrine (Epipen) 0.3 MG/0.3ML injection syringe Inject 1 Syringe as directed 1 (one) time 4 Active rizatriptan GRIPS (Maxalt-GRIPS) 10 MG disintegrating tabletIndications: Nonintractable headache, unspecified chronicity pattern, unspecified headache type Take 1 tablet (10 mg) by mouth 1 (one) time if needed for migraine 9 tablet 3 4 Active hydrOXYzine HCl (Atarax) 25 MG tablet Take 25 mg by mouth 3 (three) times a day as needed for itching 4 Active triamcinolone (Kenalog) 0.1 % creamIndications:E czema, unspecified type Apply topically 2 (two) times a day as needed (pain and swelling) 30 g 2 4 Active amphetamine-dextro amphetamine XR (Adderall XR) 20 MG 24 hr capsuleIndications :Attention deficit hyperactivity disorder (ADHD), unspecified ADHD type Take 1 capsule (20 mg) by mouth 1 (one) time each day at the same time 30 capsule 5 Active Active Problems Problem Noted Date Diagnosed Date Nonintractable headache 11/23/2023 Atopic dermatitis 12/23/2022 Attention deficit hyperactivity disorder 023 Immunizations Immunization Administration Dates Next Due DTaP 11/14/2008 DTaP, Unspecified 07/02/2005, 4,04/24/2004,02/20 HPV 9-Valent 01/18/2019,05/07/2016 Hep A, ped/adol, 2 dose 05/07/2016,11/14/2008 Hep B, Adolescent or Pediatric 2003 HiB, unspecified 04/24/2004 Hib (PRP-OMP) 04/02/2005 Hib / Hep B 06/24/2004,02/21/2004 IPV 11/14/2008, 5,04/24/2004,02/20 Influenza Whole 07/02/2005,08/01/2004,06/24/2004 Influenza, injectable, quadr ivalent, preservative free 05/07/2016 MMR 11/14/2008,04/02/2005 Meningococcal MCV4O 05/07/2016 Meningococcal MCV4P 11/15/2020 Pneumococcal Conjugate PCV 7 12/30/2004, 06/24/2004,04/24/2004,02/20 Tdap 05/07/2016 Varicella 11/14/2008,04/02/2005 Family History Medical History Relation Name Comments Mental illness Maternal Grandfather Diabetes Maternal Grandmother Asthma Mother Cancer Mother Mental illness Mother Cancer Mother's Brother Cancer Paternal Grandmother Mental illness Paternal Grandmother Relation Name Status Comments Maternal Grandfather Maternal Grandmother Mother Alive Mother's Brother Paternal Grandmother Social History Tobacco Use Types Packs/Day Years Used Date Smoking Tobacco: Never Passive Smoke Exposure: Never Smokeless Tobacco: Never Tobacco Cessation:Counseling Given: Yes Alcohol Use Standard Drinks/Week Comments Never 0 (1 standard drink = 0.6 oz pur e alcohol) PHQ-2 Answer Date Recorded Patient Health Questionnaire-2 Score 0 11/23/2023 Comments Unknown Sex and Gender Information Value Date Recorded Sex Assigned at Not on file Legal Sex Female 6:51 PM EDT Gender Identity Not on file Sexual Orientation Not on file Last Filed Vital Signs Vital Sign Reading Time Taken Comments Blood Pressure 126/78 04/07/2024 10:42 AM EDT Pulse 122 04/07/2024 10:42 AM EDT Temperature 36.3 C (97.4 F) 04/07/2024 10:42 AM EDT Respiratory Rate - - Oxygen Saturation 99% 04/07/2024 10:42 AM EDT Inhaled Oxygen Concentration - - Weight 129 kg (285 lb) 04/07/2024 10:42 AM EDT Height 177.8 cm (5' 10 ) 04/07/2024 10:42 AM EDT Body Mass Index 40.89 04/07/2024 10:42 AM EDT Plan of Treatment Not on file Insurance [facility]
--- OUTSIDE RECORDS SUMMARY | 2025-03-04 23:08 | XMS_ITS | Patient Health Record ---
Author Organization [facility] Address [address] [place] [address] Care Team Providers Care Landscaping Specialist Name Role Phone Pearl Mena Primary Care Provider Tony Abad Unavailable [phone] [employer] Unavailable [phone] Reason For Referral No Information Medications Medication SIG (Take, Route, Fr equency, Duration) Notes Start Date End Date Status Adderall XR 30 MG 1 capsule in the mor liliane Orally Once a day; Duration: 90 days Ac tive Problems Problem Type SNOMED Code ICD Code Onset Dates Problem Status W/U Status Risk Notes Problem Attention deficit hyperactivity disorder (944418842) 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) Active confirmed Plan Of Treatment No Information Insurance Providers Payer Name Payer Address Payer Phone Subscriber Number Group Number Insured Name Patient Relationship to Insured Coverage Start Date Coverage End Date [facility] [address] [place] [address] [id number] [place] RADHA PLEITEZ Self - patient is the insured [facility] CHP-termed [address] [place] [address] [id number] RADHA PLEITEZ Self - patient is the insured Medical (General) History Medical History History ICD Code ADHD Hx of Night Terrors Surgical History Surgery Date(Month/Year) none Hospitalization History Reason Date(Month/Year) VIRAL INFECTION AGE 1
[2025-03-04 23:46] VITALS: BP 141/79; PULSE 78; TEMP 36.3; O2SAT 99; BMI 40.5
[2025-03-05] MEDS: METHOCARBAMOL 500 MG TABLET 750 MG PO (00:22)
[2025-03-05] MEDS: IBUPROFEN 600 MG TABLET PO (00:22)
--- NOTE | 2025-03-05 02:38 | ED_ITS ---
HPI HPI - General Adult General Chief complaint: Back Pain/Injury Stated complaint: complains of pain to her lower right back. Time Seen by Provider: 03/04/25 23:18 Source: patient Mode of arrival: walk-in Limitations: no limitations History of Present Illness HPI narrative: Patient is a healthy 19-year-old female presenting to the emergency department with a 4-day history of low back pain. Patient states that her lower back has been bothering her for the last 4 days, but cannot identify any inciting event. She denies any injury to the lower back. She denies any numbness/tingling/w eakness in lower extremities. No gait disturbances. No numbness/tingling in the perineum. No loss of bladder/bowel function. She denies history of IV drug use. No fevers or chills. No history of cancer. She denies being . She has no other systemic symptoms such as chest pain, shortness breath, nausea, vomiting, or abdominal pain. Related Data Previous Rx's ?Medication ?Instructions ?Recorded ibuprofen 600 mg tablet 600 mg PO Q8H PRN pain #30 t abs 03/04/25 lidocaine 4 % topical patch 1 patch topical DAILY PRN pain #5 03/04/25 ea methocarbamol 750 mg tablet 750 mg PO Q8H #21 tabs 05/19 Allergies Allergy/AdvReac Type Severity Reaction Status Date / Time No Known Drug Allergies Allergy Verified 03/04/25 23:42 Opioid HPI Opioid Management Most Recent Opioid Data: Last Pain Scale 5 Today, 00:22 Last ED Pain Assessment 03/04/25, 23:53 Last MAR Pain Assessment Today, 00:22 Review of Systems ROS Status of ROS 10 or more systems reviewed and unremark able except as noted in history and below PFSH PFSH Social History Little interest or pleasure in doing things: not at all Feeling down, depressed, or hopeless: not at all Exam Narrative Exam Narrative: CONSTITUTIONAL: Well-appearing, answering questions and following commands appropriately SKIN: Was warm and dry. EYES: Sclerae white EARS, NOSE, THROAT: Moist oral mucosa. RESPIRATORY: Clear to auscultation bilaterally, no wheezes, crackles, or stridor, no use of accessory muscles CARDIOVASCULAR: Normal rate and regular rhythm. There is no S3, S4, murmur, rub. Dorsalis pedis pulses are 2+ and symmetrical. GASTROINTESTINAL: Abdomen is nondistended. MUSCULOSKELETAL: No midline L-spine tenderness. Mild tenderness to palpation throughout the paraspinal muscles of the lower back. There was no lower extremity edema, erythema, or tenderness. NEUROLOGIC: Patient is awake and alert. 5/5 strength in the bilateral lower extremities. Sensation intact to light touch in the bilateral lower extremities. Constitutional Vital Signs, click to edit/add: Last Vital Signs Temp 97.4 F L 03/04/25 23:46 Pulse 78 03/04/25 23:46 Resp 20 03/04/25 23:46 BP 141/79 03/04/25 23:46 Pulse Ox 99 03/04/25 23:46 O2 Del Method Room Air 03/04/25 23:46 Course Vital Signs Vital signs: Vital Signs Temperature 97.4 F L 03/04/25 23:46 Pulse Rate 78 03/04/25 23:46 Respiratory Rate 20 03/04/25 23:46 Blood Pressure 141/79 03/04/25 23:46 Pulse Oximetry 99 03/04/25 23:46 Oxygen Delivery Method Room Air 03/04/25 23:46 Temperature 97.4 F L 03/04/25 23:46 Pulse Rate 78 03/04/25 23:46 Respiratory Rate 20 03/04/25 23:46 Blood Pressure 141/79 03/04/25 23:46 Pulse Oximetry 99 03/04/25 23:46 Oxygen Delivery Method Room Air 03/04/25 23:46 Medical Decision Making MDM Narrative Medical decision making narrative: Patient is a healthy 19-year-old female presenting to the emergency department with atraumatic low back pain x 4 days. Vital signs on arrival are within normal limits. She is afebrile and hemodynamically stable. Examination as noted above, however was negative for any neurologic deficits or midline L-spine tenderness. Differential diagnosis includes musculoskeletal pain, mild lumbar radiculopathy/sciatica, lumbar strain. The patient has no red flag signs for cauda equina syndrome such as urinary incontinence/retention, weakness, or sensory deficits. No history of IV drug use or fevers to suggest spinal epidur al abscess. No history of trauma to suggest acute fractures. I do not believe any imaging is indicated at this time. She was treated symptomatically with oral Robaxin, lidocaine patch, and oral Motrin. I do believe the patient is stable for discharge at this time. Patient's presentation is most likely consistent with musculoskeletal strain. They were instructed to follow up with their PCP for further care. Return precautions were given including any new or worsening symptoms. They were given a prescription for lidocaine patches, Motrin, and Robaxin. Patient understands and agrees to the plan. Discharge Plan Discharge Chief Complaint: Back Pain/Injury Clinical Impression: Strain of lumbar region Patient Disposition: Home, Self-Care Time of Disposition Decision: 23:55 Condition: Good Mode of Transportation: Private Vehicle Prescriptions / Home Meds: New methocarbamol 750 mg tablet 750 mg PO Q8H Qty: 21 0RF lidocaine 4 % adhesive patch,medicated 1 patch topical DAILY PRN (Reason: pain) Qty: 5 0RF Rx Instructions: may leave on for up to 12 hrs ibuprofen 600 mg tablet 600 mg PO Q8H PRN (Reason: pain) Qty: 30 0RF Print Language: Bahamian Instructions: Back Pain (ED) Referrals: Physician,Non-Staff, MD [Primary Care Provider] - 1 week Discharge Date/Time: 03/05/25 00:31
== END 2025-03-05 00:31 | disposition home or self-care (01) ==
PROVIDERS: Emergency Provider Student in an Organized Health Care Education/Training Program
DX: S39.012A Strain of muscle, fascia and tendon of lower back, initial encounter (principal)
CPT/HCPCS: 99283